=== PATIENT | female | born 1995 | race African-American/Black ===

== ENCOUNTER 2019-11-23 14:02 | Observation (INO) ==
[2019-11-23 14:51] LABS: Basophils % 0.1 % (0.0-0.8); Hematocrit 40.4 VOL% (35.7-47.0); Hemoglobin 13.2 GM/DL (12.0-16.0); Immature Granulocytes % 0.6 %; Immature Granulocytes Absolute 0.04 #; Lymphocytes # 0.9 10*3/uL (1.4-4.0); Lymphocytes % 12.5 % (21.3-54.2); Mean Corpuscular HGB Conc 32.7 GM/DL (32-36); Mean Corpuscular Volume 82.3 FL (87-102); Mean Platelet Volume 9.5 FL (9.6-12.0); Monocytes % 4.5 % (1.7-12.7); Neutrophils % 82.3 % (38.7-73.9); Platelet Count 226 T/CUMM (130-400); Red Blood Count 4.91 MC/CUMM (3.8-5.5); Red Cell Distribution Width 12.1 % (9.3-17.3); White Blood Count 6.9 T/CUMM (4-12)
[2019-11-23 15:09] LABS: Albumin 3.7 G/DL (3.4-5.0); Bilirubin,Total 0.4 MG/DL (0.2-1.0); Calcium 9.1 MG/DL (8.5-10.1); Osmolality,Calculated 280.3 MOS/KG (273-304)
[2019-11-23] MEDS ORDERED: ONDANSETRON 4 MG/2 ML VIAL IV STA (15:24)
[2019-11-23] MEDS ORDERED: SODIUM CHLORIDE 0.9% 1,000 ML IV STA (15:24)
[2019-11-23 15:48] LABS: Apearance,Urine CLOUDY (Clear); Bilirubin,Urine Negative (Negative); Blood, Urine Moderate mg/dL (Negative); Glucose,Urine (UA) Negative (Negative); Hyaline Casts,Urine 2 /LPF (0-3); Ketones,Urine 5 mg/dL (Negative); Mucus,Urine Occasional /LPF (Occasional); Nitrite,Urine Negative (Negative); Protein,Urine 100 MG/DL; RBC,Urine 10 /HPF (0-4); Squamous Epithelial Cell,Urine Occasional /HPF (0-10); Urine Color Yellow (Yellow); Urine Specific Gravity 1.017 (1.001-1.035); Urine Urobilinogen < 2.0 EU/DL (0.2-1.0)
[2019-11-23 16:16] LABS: Barbiturates Screen,Urine Negative (Negative); Benzodiazepines Screen,Urine Negative (Negative); Cannabinoid Screen,Urine Positive (Negative); Opiate Screen,Urine Positive (Negative); Phencyclidine Screen,Urine Negative (Negative)
[2019-11-23] MEDS ORDERED: POTASSIUM CHLORIDE 20 MEQ TABLET PO STA (16:41)
[2019-11-23] MEDS ORDERED: METOPROLOL TARTRATE 25 MG TABLET PO STA (16:45)
[2019-11-23] MEDS ORDERED: LORazepam 1 MG TABLET PO PRN (18:00)
[2019-11-23] MEDS ORDERED: ONDANSETRON 4 MG/2 ML VIAL IV PRN (18:00)
[2019-11-23] MEDS ORDERED: ACETAMINOPHEN 325 MG TABLET PO PRN (18:00)
[2019-11-23] MEDS: DEXTROSE 5% NACL 0.9% 1,000 ML IV SCH (21:22)
[2019-11-23] MEDS: ENOXAPARIN 40 MG/0.4 ML SYRINGE SUBCUT SCH (21:23)
[2019-11-23] MEDS: METOPROLOL TARTRATE 25 MG TABLET PO SCH (21:23)
[2019-11-24] MEDS: DEXTROSE 5% NACL 0.9% 1,000 ML IV SCH ×2 (02:43→09:24)
[2019-11-24 05:15] LABS: Calcium 8.2 MG/DL (8.5-10.1); Osmolality,Calculated 279.1 MOS/KG (273-304)
[2019-11-24] MEDS: PANTOPRAZOLE 40 MG TABLET PO SCH (09:11)
[2019-11-24] MEDS: NORETHINDRONE E ESTRADIOL IRON PO SCH (09:11)
[2019-11-24] MEDS: METOPROLOL TARTRATE 25 MG TABLET PO SCH (09:11)
[2019-11-24] MEDS: BENZONATATE 100 MG CAPSULE PO PRN ×2 (09:11→21:26)
[2019-11-24] MEDS: ENOXAPARIN 40 MG/0.4 ML SYRINGE SUBCUT SCH (21:26)
[2019-11-25] MEDS: PANTOPRAZOLE 40 MG TABLET PO SCH (09:15)
[2019-11-25] MEDS: NORETHINDRONE E ESTRADIOL IRON PO SCH (09:15)
[2019-11-25 10:36] VITALS: BP 121/65
== END 2019-11-25 11:17 | disposition home or self-care (01) ==
LOC: N.ED 14:02 → N.EDINP 14:02 → SUATTDRO 17:13 → N.5E 17:58
PROVIDERS: ADMIT Internal Medicine; ATTEND Internal Medicine